=== PATIENT | male | born 1965 | race Caucasian/White ===

== ENCOUNTER 2020-05-31 14:00 | Inpatient (IN) | payer OTHER, SELFPAY ==
[~2020-05-31] VITALS: Ht 182.9 cm; Wt 125.0 kg
[2020-05-31 15:16] LABS: CALCIUM 8.3 mg/dL (8.5-10.1); CHLORIDE SERUM 94 mmol/L (98-107); CREATININE SERUM 1.5 mg/dL (0.7-1.3); GFR1 51 mL/min; GLUCOSE SERUM 319 mg/dL (74-106); POTASSIUM SERUM 4.5 mmol/L (3.5-5.1); SODIUM SERUM 129 mmol/L (136-145)
[2020-05-31 15:17] LABS: BASOPHIL % 0.1 % (0-2); PLATELET COUNT 157 x10^3mcL (130-400); RED CELL DISTRIBUTION WIDTH 15.9 % (11.5-14.5)
[2020-05-31 15:32] LABS: ALKALINE PHOSPHATASE 129 U/L (46-116); ALT/SGPT 63 U/L (16-63); AST/SGOT 74 U/L (15-37); BILIRUBIN TOTAL 0.7 mg/dL (0.20-1.00); LACTIC DEHYDROGENASE (LDH) 570 U/L (100-190)
[2020-05-31 15:33] LABS: ALBUMIN 2.1 g/dL (3.4-5.0)
[2020-05-31 18:25] LABS: UA SPECIFIC GRAVITY >=1.030 (1.005-1.035); microscopic required? YES; urine erythrocyte NEGATIVE (NEGATIVE)
[2020-05-31 18:43] LABS: CHOLESTEROL/HDL RATIO 8.9
[2020-05-31 18:59] LABS: FREE T4 1.35 ng/dL (0.76-1.46); T4(THYROXINE) 7.8 ug/dL (4.7-13.3)
[2020-05-31 21:00] VITALS: BP 111/65
[2020-05-31] MEDS ORDERED: DULOXETINE HYDR60 MG PO (21:31)
[2020-05-31] MEDS ORDERED: HUMULIN10 ML SC (21:32)
[2020-05-31] MEDS ORDERED: TRAZODONE50 M1 PO (21:32)
[2020-06-01] VITALS (7 sets, daily range): BP systolic 96–145; BP diastolic 49–85
[2020-06-01 06:22] LABS: BASOPHIL % 0.1 % (0-2)
[2020-06-01 06:23] LABS: PLATELET COUNT 127 x10^3mcL (130-400); RED CELL DISTRIBUTION WIDTH 15.8 % (11.5-14.5)
[2020-06-01 07:42] LABS: CALCIUM 8.2 mg/dL (8.5-10.1); CREATININE SERUM 1.4 mg/dL (0.7-1.3); MAGNESIUM 2.2 mg/dL (1.8-2.4); PHOSPHOROUS 5.2 mg/dL (2.5-4.9)
[2020-06-01 07:51] LABS: C REACTIVE PROTEIN 16.8 mg/dL (<=0.9)
[2020-06-01 07:53] LABS: POTASSIUM SERUM 5.6 mmol/L (3.5-5.1)
[2020-06-01 08:51] LABS: CARBON DIOXIDE 28.8 mmol/L (21-32)
[2020-06-02 03:14] VITALS: BP 118/60
[2020-06-02 06:10] LABS: BASOPHIL % 0 % (0-2); PLATELET COUNT 125 x10^3mcL (130-400); RED CELL DISTRIBUTION WIDTH 16.1 % (11.5-14.5)
[2020-06-02 06:31] LABS: C REACTIVE PROTEIN 7.7 mg/dL (<=0.9); CALCIUM 8.5 mg/dL (8.5-10.1); CARBON DIOXIDE 31.4 mmol/L (21-32); CHLORIDE SERUM 100 mmol/L (98-107); CREATININE SERUM 1.3 mg/dL (0.7-1.3); GFR1 > 60 mL/min; GLUCOSE SERUM 290 mg/dL (74-106); LACTIC DEHYDROGENASE (LDH) 500 U/L (100-190); MAGNESIUM 2.3 mg/dL (1.8-2.4); PHOSPHOROUS 5.4 mg/dL (2.5-4.9); POTASSIUM SERUM 4.6 mmol/L (3.5-5.1); SODIUM SERUM 136 mmol/L (136-145)
[2020-06-02 08:00] VITALS: BP 125/76
[2020-06-02 08:23] LABS: ERYTHROCYTE SED RATE 55 mm/hr (0-20)
[2020-06-02 11:28] VITALS: BP 147/77
[2020-06-02 16:00] VITALS: BP 114/39
[2020-06-02 19:24] VITALS: BP 100/64
[2020-06-03 05:22] VITALS: BP 105/62
[2020-06-03 07:57] LABS: C REACTIVE PROTEIN 3.9 mg/dL (<=0.9); CALCIUM 8.5 mg/dL (8.5-10.1); CARBON DIOXIDE 33.2 mmol/L (21-32); CHLORIDE SERUM 103 mmol/L (98-107); CREATININE SERUM 1.2 mg/dL (0.7-1.3); GFR1 > 60 mL/min; GLUCOSE SERUM 241 mg/dL (74-106); LACTIC DEHYDROGENASE (LDH) 411 U/L (100-190); MAGNESIUM 2.1 mg/dL (1.8-2.4); PHOSPHOROUS 4.1 mg/dL (2.5-4.9); POTASSIUM SERUM 4.9 mmol/L (3.5-5.1); SODIUM SERUM 139 mmol/L (136-145)
[2020-06-03 08:20] VITALS: BP 115/70
[2020-06-03 08:39] LABS: BASOPHIL % 0 % (0-2); PLATELET COUNT 123 x10^3mcL (130-400); RED CELL DISTRIBUTION WIDTH 15.6 % (11.5-14.5)
[2020-06-03 10:15] LABS: ERYTHROCYTE SED RATE 46 mm/hr (0-20)
[2020-06-03 11:56] VITALS: BP 138/83
[2020-06-03 21:56] VITALS: BP 118/68
[2020-06-04 06:30] VITALS: BP 123/71
[2020-06-04 06:35] LABS: BASOPHIL % 0.1 % (0-2)
[2020-06-04 07:02] LABS: C REACTIVE PROTEIN 2.8 mg/dL (<=0.9); CALCIUM 8.7 mg/dL (8.5-10.1); CHLORIDE SERUM 105 mmol/L (98-107); CREATININE SERUM 0.9 mg/dL (0.7-1.3); GFR1 > 60 mL/min; GLUCOSE SERUM 199 mg/dL (74-106); LACTIC DEHYDROGENASE (LDH) 396 U/L (100-190); POTASSIUM SERUM 4.6 mmol/L (3.5-5.1); SODIUM SERUM 141 mmol/L (136-145)
[2020-06-04 07:03] LABS: PLATELET COUNT 103 x10^3mcL (130-400)
[2020-06-04 08:17] LABS: ERYTHROCYTE SED RATE 47 mm/hr (0-20)
[2020-06-04 08:21] VITALS: BP 121/71
[2020-06-04 12:01] VITALS: BP 125/82
[2020-06-04 14:36] LABS: T3 TOTAL 0.67 ng/mL
[2020-06-04 16:41] VITALS: BP 145/75
[2020-06-04 21:21] VITALS: BP 143/68
[2020-06-05 06:31] VITALS: BP 115/70
[2020-06-05 08:35] VITALS: BP 135/79
[2020-06-05 13:07] VITALS: BP 145/88
[2020-06-05 15:13] LABS: BILIRUBIN DIRECT 0.26 mg/dL (0.0-0.2); BILIRUBIN TOTAL 0.6 mg/dL (0.20-1.00)
[2020-06-05 15:15] LABS: ALBUMIN 2.4 g/dL (3.4-5.0); TOTAL PROTEIN, SERUM 5.7 g/dL (6.4-8.2)
[2020-06-05 16:31] VITALS: BP 123/80
[2020-06-05 20:14] VITALS: BP 162/75
[2020-06-05 21:36] VITALS: BP 155/93
[2020-06-06 05:28] VITALS: BP 121/75
[2020-06-06 08:00] VITALS: BP 143/70
[2020-06-06 08:13] LABS: BILIRUBIN DIRECT 0.21 mg/dL (0.0-0.2); BILIRUBIN TOTAL 0.6 mg/dL (0.20-1.00)
[2020-06-06 08:14] LABS: ALBUMIN 2.5 g/dL (3.4-5.0); TOTAL PROTEIN, SERUM 5.8 g/dL (6.4-8.2)
[2020-06-06 11:30] VITALS: BP 148/79
[2020-06-06 15:30] VITALS: BP 147/77
[2020-06-06 20:54] VITALS: BP 136/81
[2020-06-07 06:05] VITALS: BP 134/77
[2020-06-07 06:52] LABS: BASOPHIL % 0.2 % (0-2)
[2020-06-07 07:00] LABS: PLATELET COUNT 103 x10^3mcL (130-400); RED CELL DISTRIBUTION WIDTH 15.7 % (11.5-14.5)
[2020-06-07 07:28] LABS: ALKALINE PHOSPHATASE 109 U/L (46-116); ALT/SGPT 76 U/L (16-63); AST/SGOT 43 U/L (15-37); BILIRUBIN TOTAL 0.6 mg/dL (0.20-1.00); CALCIUM 9.4 mg/dL (8.5-10.1); CHLORIDE SERUM 108 mmol/L (98-107); CREATININE SERUM 0.9 mg/dL (0.7-1.3); GFR1 > 60 mL/min; GLUCOSE SERUM 111 mg/dL (74-106); POTASSIUM SERUM 4.8 mmol/L (3.5-5.1); SODIUM SERUM 150 mmol/L (136-145)
[2020-06-07 07:30] LABS: ALBUMIN 2.5 g/dL (3.4-5.0); TOTAL PROTEIN, SERUM 5.5 g/dL (6.4-8.2)
[2020-06-07 07:32] LABS: CARBON DIOXIDE 43.4 mmol/L (21-32)
[2020-06-07 09:42] VITALS: BP 135/62
[2020-06-07 12:05] VITALS: BP 128/69
[2020-06-07 17:05] VITALS: BP 148/78
[2020-06-07 21:43] VITALS: BP 107/59
[2020-06-08 05:46] VITALS: BP 109/60
[2020-06-08 10:04] LABS: ALBUMIN 2.6 g/dL (3.4-5.0); BILIRUBIN DIRECT 0.19 mg/dL (0.0-0.2); BILIRUBIN TOTAL 0.6 mg/dL (0.20-1.00); TOTAL PROTEIN, SERUM 5.4 g/dL (6.4-8.2)
[2020-06-08 10:07] VITALS: BP 130/82
[2020-06-08 13:40] VITALS: BP 116/65
[2020-06-08 19:05] VITALS: BP 126/70
[2020-06-08 20:58] VITALS: BP 123/62
[2020-06-09 05:32] VITALS: BP 123/57
[2020-06-09 08:13] LABS: CARBON DIOXIDE 39.6 mmol/L (21-32); CHLORIDE SERUM 105 mmol/L (98-107); CREATININE SERUM 0.8 mg/dL (0.7-1.3); GFR1 > 60 mL/min; GLUCOSE SERUM 88 mg/dL (74-106); SODIUM SERUM 145 mmol/L (136-145)
[2020-06-09 08:33] LABS: BASOPHIL % 0.3 % (0-2)
[2020-06-09 08:41] LABS: PLATELET COUNT 86 x10^3mcL (130-400); RED CELL DISTRIBUTION WIDTH 16.2 % (11.5-14.5)
[2020-06-09 08:56] LABS: BILIRUBIN DIRECT 0.22 mg/dL (0.0-0.2); BILIRUBIN TOTAL 0.8 mg/dL (0.20-1.00)
[2020-06-09 08:57] LABS: ALBUMIN 2.7 g/dL (3.4-5.0); TOTAL PROTEIN, SERUM 5.8 g/dL (6.4-8.2)
[2020-06-09 09:51] VITALS: BP 113/63
[2020-06-09 14:06] VITALS: BP 118/65
[2020-06-09 17:18] VITALS: BP 110/55
[2020-06-09 21:32] VITALS: BP 125/67
[2020-06-10 05:41] VITALS: BP 116/54
[2020-06-10 09:10] VITALS: BP 105/53
[2020-06-10 11:56] VITALS: BP 133/81
[2020-06-10 17:41] VITALS: BP 121/58
[2020-06-10 20:52] VITALS: BP 116/55
[2020-06-11 05:53] VITALS: BP 108/41
[2020-06-11 07:58] LABS: CALCIUM 8.9 mg/dL (8.5-10.1); CARBON DIOXIDE 39.3 mmol/L (21-32); CHLORIDE SERUM 102 mmol/L (98-107); CREATININE SERUM 0.8 mg/dL (0.7-1.3); GFR1 > 60 mL/min; GLUCOSE SERUM 122 mg/dL (74-106); POTASSIUM SERUM 4.1 mmol/L (3.5-5.1); SODIUM SERUM 142 mmol/L (136-145)
[2020-06-11 08:19] LABS: BASOPHIL % 0.2 % (0-2); PLATELET COUNT 88 x10^3mcL (130-400); RED CELL DISTRIBUTION WIDTH 16.7 % (11.5-14.5)
[2020-06-11 08:39] VITALS: BP 106/55
[2020-06-11 12:13] VITALS: BP 110/60
[2020-06-11 16:22] VITALS: BP 134/73
[2020-06-11 20:31] VITALS: BP 133/62
[2020-06-12 05:46] VITALS: BP 125/68
[2020-06-12 07:52] LABS: BASOPHIL % 0.1 % (0-2); C REACTIVE PROTEIN 1.7 mg/dL (<=0.9); CALCIUM 8.8 mg/dL (8.5-10.1); CARBON DIOXIDE 35.7 mmol/L (21-32); CHLORIDE SERUM 101 mmol/L (98-107); CREATININE SERUM 0.9 mg/dL (0.7-1.3); GFR1 > 60 mL/min; GLUCOSE SERUM 137 mg/dL (74-106); MAGNESIUM 1.9 mg/dL (1.8-2.4); POTASSIUM SERUM 3.9 mmol/L (3.5-5.1); SODIUM SERUM 140 mmol/L (136-145)
[2020-06-12 08:17] LABS: PLATELET COUNT 96 x10^3mcL (130-400); RED CELL DISTRIBUTION WIDTH 18.5 % (11.5-14.5)
[2020-06-12] MEDS ORDERED: VENTOLIN H0.09 MG/A1 INH (09:04)
[2020-06-12] MEDS ORDERED: DULOXETINE HYDR60 MG PO (09:05)
[2020-06-12] MEDS ORDERED: LANTI SQ (09:06)
[2020-06-12] MEDS ORDERED: TRAZODONE50 M1 PO (09:06)
[2020-06-12] MEDS ORDERED: MUCINEX600 MG PO (09:06)
[2020-06-12] MEDS ORDERED: FORTAMET500 M1 PO (09:07)
[2020-06-12] MEDS ORDERED: GLIPIZIDE XL2.5 M1 PO (09:07)
[2020-06-12] MEDS ORDERED: INSULIN SYRING1 EA29 SQ (09:08)
[2020-06-12] MEDS ORDERED: MEDROL DOSEPAK4 MG PO (09:08)
[2020-06-12] MEDS ORDERED: ELIQUIS2.5 MG PO (09:09)
[2020-06-12 09:20] VITALS: BP 111/63
[2020-06-12 13:20] VITALS: BP 111/63
[2020-06-12 13:25] VITALS: BP 117/59
[2020-06-12 15:37] VITALS: Ht 182.9 cm; Wt 125.0 kg
[2020-06-12 16:49] VITALS: BP 135/73
== END 2020-06-12 18:16 | disposition home or self-care (01) | DRG 137 ==
LOC: ED 14:00 → IC 17:48 → DU 17:48 → IC 19:58 → DU 06-02 19:11
PROVIDERS: Emergency Medicine; Family Medicine; Internal Medicine; Internal Medicine Infectious Disease; ADMIT Internal Medicine; ATTEND Internal Medicine
PROC: XW13325 Transfusion of Convalescent Plasma (Nonautologous) into Peripheral Vein, Percutaneous Approach, New Technology Group 5 (ICD-10-PCS; principal; 2020-06-01)
PROC: XW033E5 Introduction of Remdesivir Anti-infective into Peripheral Vein, Percutaneous Approach, New Technology Group 5 (ICD-10-PCS; 2020-06-05)
DX: U07.1 COVID-19 (principal); J96.01 Acute respiratory failure with hypoxia; N17.0 Acute kidney failure with tubular necrosis; E78.00 Pure hypercholesterolemia, unspecified; J12.89 Other viral pneumonia; E87.1 Hypo-osmolality and hyponatremia; E66.9 Obesity, unspecified; Z71.3 Dietary counseling and surveillance; Z68.42 Body mass index [BMI] 45.0-49.9, adult; E87.8 Other disorders of electrolyte and fluid balance, not elsewhere classified; E11.65 Type 2 diabetes mellitus with hyperglycemia; E44.0 Moderate protein-calorie malnutrition; F32.9 Major depressive disorder, single episode, unspecified; Z91.19 Patient's noncompliance with other medical treatment and regimen
CPT/HCPCS: 36600; 82962; 83880; 84439; 85378; 87804; G0378; J0456; J0696; J1100; J1650; J1815; J1940; J2405; J3490; J3535; J7050; J7060; Q0092; U0003-CS